=== PATIENT | female | born 1955 | race Caucasian/White ===

== ENCOUNTER 2023-05-02 03:51 | Emergency (ER) | payer MEDICARE ==
[2023-05-02] MEDS ORDERED: Ondansetron ODT 4 MG TAB ONE (04:19)
[2023-05-02 04:58] LABS: #Basophils 0.1 thou/uL (0.0-0.2); #Eosinphils 0.3 thou/uL (0.0-0.7); #Monocytes 0.8 thou/uL (0.11-0.59); #Neutrophils 4.5 thou/uL (1.40-6.50); %Basophils 0.7 % (0.0-1.0); %Eosinophils 4.2 % (0.0-10.0); %Lymphocytes 29.3 % (21.0-51.0); %Neutrophils 55.6 % (42.0-75.0); Hematocrit 34.5 % (36.0-47.0); Hemoglobin 11.9 g/dL (12.0-16.0); Mean Corpuscular HGB CONC 34.5 g/dL (32.0-36.0); Mean Corpuscular Hemoglobin 30.8 pg (27.0-31.0); Mean Corpuscular Volume 89.4 fl (78.0-98.0); Mean Platelet Volume 9.9 fL (7.4-10.4); Platelet Count 241 10x3/uL (130-400); RBC Distribution Width 13.1 % (11.5-14.5); Red Blood Cell (RBC) Count 3.86 mill/uL (4.20-5.40); White Blood Cell (WBC) Count 8.1 10x3/uL (4.8-10.8)
[2023-05-02 05:21] LABS: ALT (SGPT) 135 U/L (8-55); AST (SGOT) 32 U/L (5-34); Albumin 4.6 g/dL (3.4-4.8); Alkaline Phosphatase 157 U/L (40-110); Anion Gap 13 mmol/L (10-20); BUN (Urea Nitrogen) 8 mg/dL (9.8-20.1); Bilirubin, Total 0.7 mg/dL (0.2-1.2); Calc. Creatinine Clearance 0 mL/min (70-130); Calcium 9.1 mg/dL (7.8-10.44); Carbon Dioxide 24 mmol/L (23-31); Chloride 99 mmol/L (98-107); Estimated GFR 91; Globulin 2.4 g/dL (2.4-3.5); Glucose 150 mg/dL (80-115); Lipase 27 U/L (8-78); Magnesium 1.9 mg/dL (1.6-2.6); Potassium 3.7 mmol/L (3.5-5.1); Sodium 132 mmol/L (136-145)
[2023-05-02 05:24] LABS: Troponin I Less than 0.010 ng/mL (< 0.028)
[2023-05-02] MEDS ORDERED: Metoclopramide HCl 10 MG/2 ML VIAL ONE (06:20)
[2023-05-02] MEDS ORDERED: Morphine 4 MG/ML VIAL ONE (06:20)
[2023-05-02] MEDS ORDERED: LORazepam 2 MG/ML SYR.(CARPUJECT) ONE (06:21)
[2023-05-02] MEDS ORDERED: Famotidine/PF 20 mg/2ml Vial ONE (07:13)
[2023-05-02] MEDS ORDERED: Iopamidol 370 76% 100 ML VIAL ONE (13:51)
== END 2023-05-02 07:52 | disposition home or self-care (01) ==
LOC: ERS 03:51
DX: R10.9 Unspecified abdominal pain (principal); G47.00 Insomnia, unspecified
CPT/HCPCS: 71045; 74177; 80053; 83690; 83735; 84484; 85025; 93005; J2060; 96361; 96374; 96375; J2270; J2765; Q0162; Q9967; S0028

== ENCOUNTER 2023-07-13 14:22 | Outpatient (CLI) | payer MEDICARE | END 2023-07-13 14:23 | disposition home or self-care (01) | LOC: RAD 14:22 | PROVIDERS: ATTEND Family Medicine | DX: S50.01XA Contusion of right elbow, initial encounter (principal); S60.211A Contusion of right wrist, initial encounter ==